=== PATIENT | male | born 1945 | race Caucasian/White ===

== ENCOUNTER 2018-03-26 10:36 | Outpatient (CLI) | payer MEDICARE ==
--- NOTE | 2018-03-26 12:47 | ULT ---
ULTRASOUND THYROID: HISTORY: E04.1, E04.9. COMPARISON: Ultrasound of thyroid 03/03/17. FINDINGS: Small colloid cyst in the left lobe of the thyroid. There is a nodule in the right lobe of the thyro id which is predominantly cystic, although it has a solid component within it with some microcalcific ations. This is wider than tall with sharply marginated borders. The nodule measures 1.8 x 1.3 cm. Small colloid cyst in the right lobe of the thyroid. IMPRESSION: Dominant cystic lesion in the right lobe of the thyroid is similar in size and is a TRADS 3 due to pu nctate echogenic foci. Followup in 6 months-1 year is recommended. POS: DANIEL
== END 2018-03-26 10:37 | disposition home or self-care (01) ==
LOC: SCSULT 10:36
PROVIDERS: ATTEND Otolaryngology Plastic Surgery within the Head & Neck
DX: E04.1 Nontoxic single thyroid nodule (principal); E04.9 Nontoxic goiter, unspecified; E07.9 Disorder of thyroid, unspecified
CPT/HCPCS: 76536

== ENCOUNTER 2019-05-08 09:51 | Outpatient (CLI) | payer MEDICARE ==
--- NOTE | 2019-05-08 11:22 | ULT ---
THYROID ULTRASOUND: Date: 05/08/19 HISTORY: Follow-up thyroid nodule. COMPARISON: 03/26/18 exam. FINDINGS: Real-time imaging of the right and left lobes of the gland were performed. The right lobe measures 1. 8 x 1.9 x 4.8 cm. The left lobe measures 1.3 x 1.4 x 4.6 cm. These nodules are mainly complex cystic lesions, fairly similar in appearance to the prior exam. No definite interval change. IMPRESSION: Stable overall exam. POS: [facility]
== END 2019-05-08 09:52 | disposition home or self-care (01) ==
LOC: SCSULT 09:51
PROVIDERS: ATTEND Otolaryngology Plastic Surgery within the Head & Neck
DX: E04.1 Nontoxic single thyroid nodule (principal)
CPT/HCPCS: 76536

== ENCOUNTER 2021-06-17 09:00 | Outpatient (CLI) | payer MEDICARE ==
[2021-06-17 12:05] LABS: Prothrombin Time 10.9 sec (9.5-12.1)
[2021-06-17 12:06] LABS: #Eosinphils 0.2 10x3/uL (0.0-0.5); #Monocytes 0.7 10x3/uL (0.0-1.1); #Neutrophils 2.4 10x3/uL (1.5-8.4); %Basophils 0.6 % (0.0-2.0); %Eosinophils 3.7 % (0.0-6.0); %Lymphocytes 33.7 % (18.0-47.0); %Monocytes 13.8 % (0.0-10.0); %Neutrophils 47.6 % (40.0-75.0); Hemoglobin 14.7 g/dL (13.5-17.5); Mean Corpuscular Hemoglobin 30.8 pg (27.0-33.0); Mean Corpuscular Volume 90.6 fl (81.2-95.1); Mean Platelet Volume 9.5 fl (7.4-10.4); Platelet Count 174 10x3/uL (150-450); RBC Distribution Width 13.6 % (11.5-14.5); Red Blood Cell (RBC) Count 4.77 10x6/uL (4.32-5.72); White Blood Cell (WBC) Count 5.1 10x3/uL (3.5-10.5)
[2021-06-17 12:07] LABS: Anion Gap 16 mmol/L (10-20); BUN (Urea Nitrogen) 17 mg/dL (8.4-25.7); Calc. Creatinine Clearance 0 mL/min (70-130); Calcium 8.7 mg/dL (7.8-10.44); Carbon Dioxide 26 mmol/L (23-31); Chloride 94 mmol/L (98-107); Glucose 101 mg/dL (83-110); Potassium 4.6 mmol/L (3.5-5.1); Sodium 131 mmol/L (136-145)
[2021-06-17 17:25] LABS: SARS-CoV-2 PCR by NAA Not Detected (NotDetected)
== END 2021-06-17 09:01 | disposition home or self-care (01) ==
LOC: LABBT 09:00
PROVIDERS: ATTEND Orthopaedic Surgery
DX: Z01.812 Encounter for preprocedural laboratory examination (principal); M17.12 Unilateral primary osteoarthritis, left knee; Z20.822 Contact with and (suspected) exposure to COVID-19
CPT/HCPCS: 80048; 85025; 85610; 87081; U0003; U0005

== ENCOUNTER 2021-06-22 05:40 | Day surgery (SDC) | payer MEDICARE ==
[2021-06-22] MEDS ORDERED: Tranexamic Acid 1,000 MG/10 ML VIAL ONE (05:58)
[2021-06-22] MEDS ORDERED: ceFAZolin 2 GM/DEX 5% 100 ML BAG ONE (05:58)
[2021-06-22] MEDS ORDERED: Sodium Chloride 0.9% 100 ML ONE (05:58)
[2021-06-22] MEDS ORDERED: Vancomycin 1.5 GRAM/300 ML BAG 1.5 GM in Premix Bag 1 BAG IVPB SCH (06:15)
[2021-06-22] MEDS ORDERED: Midazolam HCl 2 mg/2 ml Vial ONE (06:42)
[2021-06-22] MEDS ORDERED: Fentanyl 100 MCG/2 ML VIAL ONE ×4 (06:42→09:33)
[2021-06-22] MEDS ORDERED: Bupivacaine PF 0.5% 30 ML VIAL ONE (07:00)
[2021-06-22] MEDS ORDERED: Ondansetron PF 4 MG/2 ML Vial IVP PRN ×2 (07:08→07:15)
[2021-06-22] MEDS ORDERED: HYDROcodone/Acetaminophen 10/325 mg Tablet PO PRN ×4 (07:08→07:15)
[2021-06-22] MEDS ORDERED: Acetaminophen 325 MG TAB PO PRN (07:08)
[2021-06-22] MEDS ORDERED: Promethazine HCl 25 MG/ML VIAL IM PRN ×2 (07:08→07:15)
[2021-06-22] MEDS ORDERED: diphenhydrAMINE 25 MG CAP PO PRN (07:08)
[2021-06-22] MEDS ORDERED: Zolpidem Tartrate 5 MG TAB PO PRN ×2 (07:08→07:15)
[2021-06-22] MEDS ORDERED: Fentanyl 100 MCG/2 ML VIAL IV PRN (07:10)
[2021-06-22] MEDS ORDERED: ePHEDrine 50 MG/ML VIAL ONE (07:13)
[2021-06-22] MEDS ORDERED: Ketorolac Tromethamine 30 MG/ML VIAL ONE (07:13)
[2021-06-22] MEDS ORDERED: Rocuronium Bromide 10 MG/ML (10ML VIAL) ONE (07:13)
[2021-06-22] MEDS ORDERED: PROPOFOL 200 MG/20 ML VIAL ONE (07:13)
[2021-06-22] MEDS ORDERED: PHENYLEPHRINE-NS 100 MCG/ML 10 ML SYRINGE ONE (07:13)
[2021-06-22] MEDS ORDERED: Dexamethasone 20 MG/5 ML VIAL ONE (07:13)
[2021-06-22] MEDS ORDERED: Bupivacaine HCl 0.5%/Epinephrine 1:200,000/PF 30 ml Vial ONE (07:13)
[2021-06-22] MEDS ORDERED: Ondansetron PF 4 MG/2 ML Vial ONE (07:13)
[2021-06-22] MEDS ORDERED: traMADol HCl 50 MG TAB PO PRN ×2 (07:15)
[2021-06-22] MEDS ORDERED: Ropivacaine 0.2% 550 ML 550 ML NERVE BLCK SCH (07:15)
[2021-06-22] MEDS ORDERED: VARDENAFIL HCL 20 MG PO PRN (07:35)
[2021-06-22] MEDS ORDERED: Aspirin 81 mg Enteric Coated Tablet PO SCH (09:00)
[2021-06-22] MEDS: Calcium Carbonate 500 MG TAB PO SCH (10:56)
[2021-06-22] MEDS: Folic Acid 1 MG TAB PO SCH (10:56)
[2021-06-22] MEDS: Aspirin 81 mg Enteric Coated Tablet PO SCH ×2 (10:56→22:20)
[2021-06-22] MEDS: clonazePAM 0.5 MG TAB PO SCH (10:56)
[2021-06-22] MEDS: Cholecalciferol 1,000 UNITS (25 MCG) TAB PO SCH (10:56)
[2021-06-22] MEDS: Hydrochlorothiazide 25 MG TAB PO SCH (10:57)
[2021-06-22] MEDS ORDERED: Ketorolac Tromethamine 30 MG/ML VIAL IVP SCH (12:00)
[2021-06-22] MEDS ORDERED: ceFAZolin Sodium/D5W 2 GM in Premix Bag 1 BAG IVPB SCH (14:00)
[2021-06-22] MEDS: Sodium Chloride 0.9% 1,000 ML IV SCH ×2 (15:33→17:13)
[2021-06-22] MEDS: Ketorolac Tromethamine 30 MG/ML VIAL IVP SCH ×2 (15:34→22:19)
[2021-06-22 15:37] VITALS: BMI 27.4
[2021-06-22] MEDS: CEFAZOLIN 2 GM, Admixture Fee 1 EACH in Sodium Chloride 0.9% 100 ML IVPB SCH (16:02)
[2021-06-23] MEDS: CEFAZOLIN 2 GM, Admixture Fee 1 EACH in Sodium Chloride 0.9% 100 ML IVPB SCH (00:28)
[2021-06-23] MEDS: Ketorolac Tromethamine 30 MG/ML VIAL IVP SCH ×2 (03:46→09:56)
[2021-06-23 05:40] LABS: Hemoglobin 12.1 g/dL (14.0-18.0); Mean Corpuscular Hemoglobin 32.1 pg (27.0-31.0); Mean Corpuscular Volume 91.7 fL (78.0-98.0); Mean Platelet Volume 6.7 fL (7.4-10.4); Platelet Count 159 thou/uL (130-400); Red Blood Cell (RBC) Count 3.78 mill/uL (4.70-6.10); White Blood Cell (WBC) Count 10.1 thou/uL (4.8-10.8)
[2021-06-23] MEDS: Sodium Chloride 0.9% 1,000 ML IV SCH (06:09)
[2021-06-23] MEDS ORDERED: Ferrous Gluconate 324 MG TAB PO SCH (08:00)
[2021-06-23 08:51] VITALS: BP 166/87; TEMP 97.8
[2021-06-23] MEDS ORDERED: Multivitamin W/ Minerals 1 TAB PO SCH (09:00)
[2021-06-23] MEDS ORDERED: Senokot S 8.6-50 MG TAB PO SCH (09:00)
[2021-06-23] MEDS: Aspirin 81 mg Enteric Coated Tablet PO SCH (09:51)
[2021-06-23] MEDS: Hydrochlorothiazide 25 MG TAB PO SCH (09:51)
[2021-06-23] MEDS: clonazePAM 0.5 MG TAB PO SCH (09:51)
[2021-06-23] MEDS: Folic Acid 1 MG TAB PO SCH (09:55)
[2021-06-23] MEDS: Calcium Carbonate 500 MG TAB PO SCH (09:56)
[2021-06-23] MEDS: Cholecalciferol 1,000 UNITS (25 MCG) TAB PO SCH (09:57)
== END 2021-06-23 12:30 | disposition home or self-care (01) ==
LOC: SDC 05:40 → SURG A 07:08 → SDC 06-23 12:30
PROVIDERS: ATTEND Orthopaedic Surgery
PROC: 0SRD0J9 Replacement of Left Knee Joint with Synthetic Substitute, Cemented, Open Approach (ICD-10-PCS; principal; 2021-06-22)
PROC: 8E0YXBZ Computer Assisted Procedure of Lower Extremity (ICD-10-PCS; 2021-06-22)
PROC: 3E0T3BZ Introduction of Anesthetic Agent into Peripheral Nerves and Plexi, Percutaneous Approach (ICD-10-PCS; 2021-06-22)
DX: M17.12 Unilateral primary osteoarthritis, left knee (principal); G47.30 Sleep apnea, unspecified; E78.5 Hyperlipidemia, unspecified; K21.9 Gastro-esophageal reflux disease without esophagitis; M06.9 Rheumatoid arthritis, unspecified; I11.9 Hypertensive heart disease without heart failure; Z79.82 Long term (current) use of aspirin; Z79.899 Other long term (current) drug therapy; Z95.1 Presence of aortocoronary bypass graft; Z95.2 Presence of prosthetic heart valve; Z96.651 Presence of right artificial knee joint
CPT/HCPCS: 20985; 27447; 64448; 73560; 85027; 97110; 97116; 97139; 97530 ×2; A4306; C1713; C1776; 36415; J0690; J1100; J1885; J2250; J2405; J2704; J2795; J3010; J3370; J3490; J7050; S0020

== ENCOUNTER 2021-09-26 10:39 | Emergency (ER) | payer MEDICARE ==
[2021-09-26 11:06] LABS: #Eosinphils 0.1 thou/uL (0.0-0.7); #Lymphocytes 1.8 thou/uL (1.20-3.40); #Monocytes 1.1 thou/uL (0.11-0.59); #Neutrophils 6.6 thou/uL (1.40-6.50); %Basophils 0.4 % (0.0-1.0); %Eosinophils 0.6 % (0.0-10.0); %Lymphocytes 18.4 % (21.0-51.0); %Monocytes 11.4 % (0.0-10.0); %Neutrophils 69.1 % (42.0-75.0); Hemoglobin 15.6 g/dL (14.0-18.0); Mean Corpuscular HGB CONC 33.9 g/dL (32.0-36.0); Mean Corpuscular Hemoglobin 31.5 pg (27.0-31.0); Mean Corpuscular Volume 92.9 fL (78.0-98.0); Mean Platelet Volume 6.6 fL (7.4-10.4); Platelet Count 192 thou/uL (130-400); RBC Distribution Width 12.7 % (11.5-14.5); Red Blood Cell (RBC) Count 4.94 mill/uL (4.70-6.10); White Blood Cell (WBC) Count 9.5 thou/uL (4.8-10.8)
[2021-09-26 11:25] LABS: ALT (SGPT) 20 U/L (8-55); AST (SGOT) 25 U/L (5-34); Albumin 4.4 g/dL (3.4-4.8); Alkaline Phosphatase 61 U/L (40-110); Anion Gap 14 mmol/L (10-20); BUN (Urea Nitrogen) 13 mg/dL (8.4-25.7); Bilirubin, Total 0.6 mg/dL (0.2-1.2); CK (CPK) 119 U/L (30-200); Calc. Creatinine Clearance 0 mL/min (70-130); Carbon Dioxide 26 mmol/L (23-31); Chloride 97 mmol/L (98-107); Globulin 2.7 g/dL (2.4-3.5); Glucose 117 mg/dL (83-110); Potassium 3.9 mmol/L (3.5-5.1); Protein, Total 7.1 g/dL (5.8-8.1); Sodium 133 mmol/L (136-145)
== END 2021-09-26 12:28 | disposition home or self-care (01) ==
LOC: ERS 10:39
DX: R07.9 Chest pain, unspecified (principal); Z79.899 Other long term (current) drug therapy
CPT/HCPCS: 36415; 71045; 80053; 82550; 84484; 85025; 93005

== ENCOUNTER 2022-03-30 09:30 | Inpatient (IN) | payer MEDICARE ==
[2022-03-30 10:44] VITALS: BMI 27.7
[2022-03-31] MEDS ORDERED: Midazolam HCl 2 mg/2 ml Vial ONE (09:42)
[2022-03-31] MEDS ORDERED: Fentanyl 100 MCG/2 ML VIAL ONE (09:42)
[2022-03-31] MEDS ORDERED: Vancomycin (BATCH) 1.5 GRAM/300 ML BAG ONE (09:56)
[2022-03-31] MEDS ORDERED: fentaNYL Citrate/PF 100 MCG/2 ML SYRINGE ONE (10:56)
[2022-03-31] MEDS ORDERED: CEFAZOLIN 2 GM VIAL ONE (11:06)
[2022-03-31] MEDS ORDERED: Sodium Chloride 0.9% 100 ML ONE (11:06)
[2022-03-31] MEDS ORDERED: Fentanyl 100 MCG/2 ML VIAL IV PRN (12:06)
[2022-03-31] MEDS ORDERED: Bupivacaine PF 0.5% 30 ML VIAL ONE (12:14)
[2022-03-31] MEDS ORDERED: Promethazine HCl 25 MG/ML VIAL IM PRN (12:15)
[2022-03-31] MEDS ORDERED: Ropivacaine 0.2% 550 ML 550 ML NERVE BLCK SCH (12:15)
[2022-03-31] MEDS ORDERED: Ondansetron PF 4 MG/2 ML Vial IVP PRN (12:15)
[2022-03-31] MEDS ORDERED: Zolpidem Tartrate 5 MG TAB PO PRN (12:15)
[2022-03-31] MEDS ORDERED: traMADol HCl 50 MG TAB PO PRN ×2 (12:15)
[2022-03-31] MEDS ORDERED: HYDROcodone/Acetaminophen 10/325 mg Tablet PO PRN ×2 (12:15)
[2022-03-31] MEDS ORDERED: Ketorolac Tromethamine 30 MG/ML VIAL IVP SCH (18:00)
== END 2022-03-31 14:35 | disposition home or self-care (01) | DRG 489 ==
LOC: SURG A 03-31 09:25 → EDSTATUS 03-31 09:30
PROVIDERS: ADMIT Orthopaedic Surgery; ATTEND Orthopaedic Surgery
PROC: 0SBC4ZZ Excision of Right Knee Joint, Percutaneous Endoscopic Approach (ICD-10-PCS; principal; 2022-03-31)
PROC: 0LBQ4ZZ Excision of Right Knee Tendon, Percutaneous Endoscopic Approach (ICD-10-PCS; 2022-03-31)
DX: T84.89XA Other specified complication of internal orthopedic prosthetic devices, implants and grafts, initial encounter (principal); Z20.822 Contact with and (suspected) exposure to COVID-19; M65.861 Other synovitis and tenosynovitis, right lower leg; G47.33 Obstructive sleep apnea (adult) (pediatric); E78.5 Hyperlipidemia, unspecified; F41.9 Anxiety disorder, unspecified; K21.9 Gastro-esophageal reflux disease without esophagitis; M06.9 Rheumatoid arthritis, unspecified; I11.9 Hypertensive heart disease without heart failure; Z96.651 Presence of right artificial knee joint; Z53.33 Arthroscopic surgical procedure converted to open procedure; Z79.899 Other long term (current) drug therapy
CPT/HCPCS: 80048; 85025; 85610; 87081; 87811; 93005; 93010; A4306; J0690; J2250; J2795; J3010; J3370; J3490; S0020

== ENCOUNTER 2022-03-30 10:01 | Outpatient (CLI) | payer MEDICARE ==
[2022-03-30 10:56] LABS: #Basophils 0.1 10x3/uL (0.0-0.2); #Eosinphils 0.2 10x3/uL (0.0-0.5); #Neutrophils 3.6 10x3/uL (1.5-8.4); %Basophils 0.8 % (0.0-2.0); %Eosinophils 2.3 % (0.0-6.0); %Monocytes 14.7 % (0.0-10.0); %Neutrophils 55.7 % (40.0-75.0); Hemoglobin 15.5 g/dL (13.5-17.5); Mean Corpuscular HGB CONC 34.6 g/dL (32.0-36.0); Mean Corpuscular Hemoglobin 30.5 pg (27.0-33.0); Mean Platelet Volume 9.8 fl (7.4-10.4); Platelet Count 176 10x3/uL (150-450); RBC Distribution Width 14.6 % (11.5-14.5); Red Blood Cell (RBC) Count 5.09 10x6/uL (4.32-5.72); White Blood Cell (WBC) Count 6.5 10x3/uL (3.5-10.5)
[2022-03-30 11:09] LABS: Prothrombin Time 10.9 sec (9.5-12.1)
[2022-03-30 11:12] LABS: Anion Gap 14 mmol/L (10-20); BUN (Urea Nitrogen) 14 mg/dL (8.4-25.7); Calc. Creatinine Clearance 0 mL/min (70-130); Calcium 9.4 mg/dL (7.8-10.44); Carbon Dioxide 29 mmol/L (23-31); Chloride 95 mmol/L (98-107); Estimated GFR 59; Glucose 109 mg/dL (83-110); Potassium 4.3 mmol/L (3.5-5.1); Sodium 134 mmol/L (136-145)
== END 2022-03-30 10:02 | disposition home or self-care (01) ==
LOC: LABBT 10:01
PROVIDERS: ATTEND Orthopaedic Surgery
DX: Z01.818 Encounter for other preprocedural examination (principal); T84.84XA Pain due to internal orthopedic prosthetic devices, implants and grafts, initial encounter; Z20.822 Contact with and (suspected) exposure to COVID-19
CPT/HCPCS: 80048; 85025; 85610; 87081; 87811; 93005; 93010

== ENCOUNTER 2022-09-27 09:35 | Outpatient (CLI) | payer MEDICARE | END 2022-09-27 09:36 | disposition home or self-care (01) | LOC: SCSMRI 09:35 | PROVIDERS: ATTEND Neurological Surgery | DX: M47.26 Other spondylosis with radiculopathy, lumbar region (principal); M48.061 Spinal stenosis, lumbar region without neurogenic claudication; M48.07 Spinal stenosis, lumbosacral region | CPT/HCPCS: 72120; 72148 ==

== ENCOUNTER 2022-11-02 11:25 | Outpatient (CLI) | payer MEDICARE | END 2022-11-02 11:26 | disposition home or self-care (01) | LOC: SCSRAD 11:25 | PROVIDERS: ATTEND Family Medicine | DX: M25.551 Pain in right hip (principal) ==

== ENCOUNTER 2022-12-06 12:49 | Outpatient (CLI) | payer MEDICARE ==
[2022-12-06 13:41] LABS: #Basophils 0.1 10x3/uL (0.0-0.2); #Eosinphils 0.3 10x3/uL (0.0-0.5); #Monocytes 0.7 10x3/uL (0.0-1.1); #Neutrophils 5.1 10x3/uL (1.5-8.4); %Basophils 0.8 % (0.0-2.0); %Eosinophils 3.6 % (0.0-6.0); %Lymphocytes 22.3 % (18.0-47.0); %Monocytes 9.3 % (0.0-10.0); %Neutrophils 63.5 % (40.0-75.0); Hemoglobin 15.3 g/dL (13.5-17.5); Mean Corpuscular HGB CONC 33.6 g/dL (32.0-36.0); Mean Corpuscular Hemoglobin 29.8 pg (27.0-33.0); Mean Corpuscular Volume 88.7 fl (81.2-95.1); Mean Platelet Volume 9.4 fl (7.4-10.4); Platelet Count 199 10x3/uL (150-450); RBC Distribution Width 14.9 % (11.5-14.5); Red Blood Cell (RBC) Count 5.14 10x6/uL (4.32-5.72)
[2022-12-06 13:50] LABS: Prothrombin Time 11.2 sec (9.5-12.1)
[2022-12-06 13:53] LABS: Anion Gap 17 mmol/L (10-20); BUN (Urea Nitrogen) 15 mg/dL (8.4-25.7); Calc. Creatinine Clearance 0 mL/min (70-130); Calcium 9.1 mg/dL (7.8-10.44); Carbon Dioxide 26 mmol/L (23-31); Chloride 96 mmol/L (98-107); Estimated GFR 56; Glucose 137 mg/dL (83-110); Potassium 4.2 mmol/L (3.5-5.1); Sodium 135 mmol/L (136-145)
== END 2022-12-06 12:50 | disposition home or self-care (01) ==
LOC: LABBT 12:49
PROVIDERS: ATTEND Orthopaedic Surgery
DX: Z01.818 Encounter for other preprocedural examination (principal); M16.11 Unilateral primary osteoarthritis, right hip
CPT/HCPCS: 80048; 85025; 85610; 87081; 93005; 93010

== ENCOUNTER 2022-12-12 06:23 | Observation (INO) | payer MEDICARE ==
[2022-12-06 13:12] VITALS: BMI 28.3
[2022-12-12] MEDS ORDERED: Tranexamic Acid 1,000 MG/10 ML VIAL ONE (07:51)
[2022-12-12] MEDS ORDERED: Vancomycin (BATCH) 1.5 GRAM/300 ML BAG ONE (07:51)
[2022-12-12] MEDS ORDERED: Sodium Chloride 0.9% 100 ML ONE ×2 (07:51→09:00)
[2022-12-12] MEDS ORDERED: fentaNYL 50 mcg/mL 1 mL Vial ONE (08:09)
[2022-12-12] MEDS ORDERED: Midazolam HCl 2 mg/2 ml Vial ONE (08:09)
[2022-12-12] MEDS ORDERED: Bupivacaine PF 0.5% 30 ML VIAL ONE ×2 (08:09→08:48)
[2022-12-12] MEDS ORDERED: HYDROcodone/Acetaminophen 10/325 mg Tablet PO PRN (08:56)
[2022-12-12] MEDS ORDERED: Promethazine HCl 25 MG/ML VIAL IM PRN (08:56)
[2022-12-12] MEDS ORDERED: Ondansetron PF 4 MG/2 ML Vial IVP PRN (08:56)
[2022-12-12] MEDS ORDERED: Zolpidem Tartrate 5 MG TAB PO PRN (08:56)
[2022-12-12] MEDS ORDERED: Acetaminophen 325 MG TAB PO PRN (08:56)
[2022-12-12] MEDS ORDERED: diphenhydrAMINE 25 MG CAP PO PRN (08:56)
[2022-12-12] MEDS ORDERED: fentaNYL 50 mcg/mL 1 mL Vial SLOW IVP PRN (08:56)
[2022-12-12] MEDS ORDERED: CEFAZOLIN 2 GM VIAL ONE (09:00)
[2022-12-12] MEDS ORDERED: Multivitamin W/ Minerals 1 TAB PO SCH (09:00)
[2022-12-12] MEDS ORDERED: Methotrexate Sodium 2.5 MG TAB PO SCH (09:00)
[2022-12-12] MEDS ORDERED: Senokot S 8.6-50 MG TAB PO SCH (09:00)
[2022-12-12] MEDS ORDERED: clonazePAM 0.5 MG TAB PO SCH (09:00)
[2022-12-12] MEDS ORDERED: Aspirin 81 mg Enteric Coated Tablet PO SCH ×2 (09:00)
[2022-12-12] MEDS ORDERED: Bupivacaine HCl 0.5%/Epinephrine 1:200,000/PF 30 ml Vial ONE (09:16)
[2022-12-12] MEDS ORDERED: PHENYLEPHRINE-NS 100 MCG/ML 10 ML SYRINGE ONE (09:16)
[2022-12-12] MEDS ORDERED: GLYCOPYRROLATE/PF 0.2 MG/ML VIAL ONE (09:16)
[2022-12-12] MEDS ORDERED: Evolocumab [Repatha Sureclick] 140 MG/ML Pen.Injctr SC SCH (10:00)
[2022-12-12] MEDS ORDERED: Melatonin 3 MG TAB PO PRN (10:02)
[2022-12-12] MEDS ORDERED: Phenylephrine 10 MG/ML VIAL ONE (10:08)
[2022-12-12] MEDS: Sodium Chloride 0.9% 1,000 ML IV SCH ×2 (13:20→20:42)
[2022-12-12] MEDS: Ketorolac Tromethamine 30 MG/ML VIAL IVP SCH ×2 (13:20→21:26)
[2022-12-12] MEDS: HYDROcodone/Acetaminophen 10/325 mg Tablet PO PRN ×2 (15:36→21:27)
[2022-12-12] MEDS: Icosapent Ethyl 1 GM CAPSULE PO SCH (17:00)
[2022-12-12] MEDS: CEFAZOLIN 2 GM in Sodium Chloride 0.9% 100 ML IVPB SCH ×2 (17:00→23:59)
[2022-12-12] MEDS: Mometasone 100 MCG/Formoterol 5 MCG 120 PUFF INHALER INH SCH (18:43)
[2022-12-12] MEDS ORDERED: Losartan 25 MG TAB PO SCH (21:00)
[2022-12-12] MEDS ORDERED: Tadalafil [Cialis] 5 MG Tablet PO SCH (21:00)
[2022-12-12] MEDS: clonazePAM 0.5 MG TAB PO SCH (21:23)
[2022-12-12] MEDS: Aspirin 81 mg Enteric Coated Tablet PO SCH (21:23)
[2022-12-12] MEDS: Ferrous Gluconate 324 MG TAB PO SCH (21:23)
[2022-12-12] MEDS: Senokot S 8.6-50 MG TAB PO SCH (21:24)
[2022-12-13] MEDS: Sodium Chloride 0.9% 1,000 ML IV SCH (03:18)
[2022-12-13] MEDS: HYDROcodone/Acetaminophen 10/325 mg Tablet PO PRN (03:19)
[2022-12-13] MEDS: Mometasone 100 MCG/Formoterol 5 MCG 120 PUFF INHALER INH SCH (05:33)
[2022-12-13 06:05] LABS: Hemoglobin 12.2 g/dL (14.0-18.0); Mean Corpuscular HGB CONC 33.3 g/dL (32.0-36.0); Mean Corpuscular Hemoglobin 30.4 pg (27.0-31.0); Mean Corpuscular Volume 91.3 fl (78.0-98.0); Mean Platelet Volume 9.6 fL (7.4-10.4); Platelet Count 136 10x3/uL (130-400); RBC Distribution Width 15.2 % (11.5-14.5); Red Blood Cell (RBC) Count 4.01 mill/uL (4.70-6.10); White Blood Cell (WBC) Count 9.5 10x3/uL (4.8-10.8)
[2022-12-13] MEDS: Ketorolac Tromethamine 30 MG/ML VIAL IVP SCH (06:17)
[2022-12-13] MEDS: Senokot S 8.6-50 MG TAB PO SCH (08:02)
[2022-12-13] MEDS: Icosapent Ethyl 1 GM CAPSULE PO SCH (08:02)
[2022-12-13] MEDS: clonazePAM 0.5 MG TAB PO SCH (08:02)
[2022-12-13] MEDS: Ferrous Gluconate 324 MG TAB PO SCH (08:03)
[2022-12-13] MEDS: Aspirin 81 mg Enteric Coated Tablet PO SCH (08:03)
[2022-12-13 08:27] VITALS: BP 132/60; TEMP 97.9
[2022-12-13] MEDS ORDERED: Folic Acid 1 MG TAB PO SCH (09:00)
[2022-12-13] MEDS ORDERED: Multivitamin W/ Minerals 1 TAB PO SCH (09:00)
[2022-12-13] MEDS ORDERED: Hydrochlorothiazide 25 MG TAB PO SCH (09:00)
== END 2022-12-13 10:40 | disposition home or self-care (01) ==
LOC: SDC 06:23 → SJJU 12:31
PROVIDERS: ADMIT Orthopaedic Surgery; ATTEND Orthopaedic Surgery
PROC: 0SR904A Replacement of Right Hip Joint with Ceramic on Polyethylene Synthetic Substitute, Uncemented, Open Approach (ICD-10-PCS; principal; 2022-12-12)
DX: M16.11 Unilateral primary osteoarthritis, right hip (principal); E78.5 Hyperlipidemia, unspecified; K21.9 Gastro-esophageal reflux disease without esophagitis; M06.9 Rheumatoid arthritis, unspecified; I11.9 Hypertensive heart disease without heart failure; Z79.620 Long term (current) use of immunosuppressive biologic; Z79.82 Long term (current) use of aspirin; Z79.899 Other long term (current) drug therapy; Z95.1 Presence of aortocoronary bypass graft; Z95.2 Presence of prosthetic heart valve; Z96.653 Presence of artificial knee joint, bilateral
CPT/HCPCS: 27130; 73502; 85027; 97110 ×2; 97116 ×2; 97530; 97535; C1776; J3010; J3370; J3490; 36415; 96374; 96375; 96376; G0378; J1885; J2250; J2370; J7050; S0020

== ENCOUNTER 2024-08-01 20:54 | Inpatient (IN) | payer MEDICARE ==
[2024-08-01 21:10] VITALS: BMI 28.3
[2024-08-01] MEDS ORDERED: Acetaminophen 650 MG Suppository PR PRN (21:32)
[2024-08-01] MEDS ORDERED: Acetaminophen 325 MG TAB PO PRN (21:32)
[2024-08-01] MEDS ORDERED: Ondansetron PF 4 MG/2 ML Vial IVP PRN (21:32)
[2024-08-01] MEDS ORDERED: Ondansetron ODT 4 MG TAB PO PRN (21:32)
[2024-08-01] MEDS: Atorvastatin Calcium 40 MG TAB PO SCH (21:56)
[2024-08-01] MEDS: Apixaban 2.5 MG TAB PO SCH (21:56)
[2024-08-02 05:29] LABS: Hemoglobin A1c 5.8 % (4.0-6.0)
[2024-08-02 05:34] LABS: #Basophils Less than 0.03 10x3/uL (0.0-0.2); #Eosinophils Less than 0.03 10x3/uL (0.0-0.7); %Basophils 0.4 % (0.0-1.0); %Eosinophils 0.4 % (0.0-10.0); %Lymphocytes 18.4 % (21.0-51.0); %Neutrophils 67.6 % (42.0-75.0); Hematocrit 35.7 % (42.0-52.0); Hemoglobin 11.5 g/dL (14.0-18.0); Mean Corpuscular HGB CONC 32.2 g/dL (32.0-36.0); Mean Corpuscular Hemoglobin 26.9 pg (27.0-31.0); Mean Corpuscular Volume 83.6 fL (78.0-98.0); Mean Platelet Volume 10.5 fL (7.4-10.4); Platelet Count 119 10x3/uL (130-400); RBC Distribution Width 16.2 % (11.5-14.5); Red Blood Cell (RBC) Count 4.27 mill/uL (4.70-6.10)
[2024-08-02 05:37] LABS: Anion Gap 10 mmol/L (10-20); BUN (Urea Nitrogen) 14 mg/dL (8.4-25.7); Calc. Creatinine Clearance 69 mL/min (70-130); Calcium 7.8 mg/dL (7.8-10.44); Carbon Dioxide 25 mmol/L (23-31); Chloride 101 mmol/L (98-107); Cholesterol 73 mg/dl (< 200 Desired); Estimated GFR 61; Glucose 95 mg/dL (83-110); HDL Cholesterol 36 mg/dL (>60 Neg Risk); LDL Cholesterol, Calculated 27 mg/dL; Potassium 3.9 mmol/L (3.5-5.1); Sodium 132 mmol/L (136-145); Triglycerides 52 mg/dL (Less than 150)
[2024-08-02] MEDS: Aspirin 81 mg Enteric Coated Tablet PO SCH (08:35)
[2024-08-02] MEDS: Apixaban 2.5 MG TAB PO SCH (08:35)
[2024-08-02] MEDS: Oseltamivir 75 MG CAP PO SCH (08:35)
[2024-08-02] MEDS ORDERED: Lorazepam 2 MG/ML VIAL SLOW IVP SCH (08:45)
[2024-08-02] MEDS: Lorazepam 2 MG/ML VIAL SLOW IVP SCH (08:54)
[2024-08-02 15:54] VITALS: BP 135/87; TEMP 98.1
[2024-08-02] MEDS ORDERED: cefTRIAXone\\ROCEPHIN 2 GM in Sodium Chloride 0.9% 100 ML IVPB SCH (17:00)
== END 2024-08-02 16:53 | disposition home or self-care (01) | DRG 689 ==
LOC: 2SE 20:56 → OBSVTOIN 08-02 14:21
PROVIDERS: ADMIT Family Medicine; ATTEND Family Medicine
DX: N39.0 Urinary tract infection, site not specified (principal); G93.41 Metabolic encephalopathy; I48.20 Chronic atrial fibrillation, unspecified; J10.81 Influenza due to other identified influenza virus with encephalopathy; I65.21 Occlusion and stenosis of right carotid artery; I48.91 Unspecified atrial fibrillation; Z79.01 Long term (current) use of anticoagulants; Z95.2 Presence of prosthetic heart valve
CPT/HCPCS: 0042T; 36415; 36416; 70450; 70551; 71045; 80048; 80053; 80061; 81001; 83036; 83605; 84443; 84484; 85025; 85610; 85730; 87040; 93005; 94760; 96361; 96374; G0378; J2060; Q9967